=== PATIENT | female | born 1990 | race Caucasian/White ===

== ENCOUNTER 2024-08-04 06:00 | Outpatient (CLI) | payer MEDICAID, SELFPAY | END 2024-08-04 06:01 | disposition home or self-care (01) | LOC: RAD 08-25 10:37 | PROVIDERS: PCP Nurse Practitioner Family; Visit Provider Nurse Practitioner Family | DX: R51.9 Headache, unspecified (principal); R26.81 Unsteadiness on feet | CPT/HCPCS: 80053; 81003; 82306; 82607; 83735; 84443; 85025; 85651; 86140 ==

== ENCOUNTER 2024-09-12 16:00 | Outpatient (CLI) | payer MEDICAID, SELFPAY ==
--- NOTE | 2024-09-12 16:43 | MR_ITS ---
WS: [id number] MRI BRAIN WITH AND WITHOUT CONTRAST HISTORY: HEADACHES COMPARISON: None available. TECHNIQUE: Multiplanar imaging performed through the brain with MultiHance 20 ml's IV. Some of the images are degraded by motion. No acute infarcts are seen. Dunlap-white matter differentiation is well preserved. There is diffuse sca ttered areas of increased T2 signal which do not enhance. Small subcentimeter increased T2 signal in the RIGHT temporal lobe. There is a very subtle area of increased T2 signal abutting the corpus callo sum of the anterior RIGHT frontal lateral ventricle. No posterior fossa lesions. No susceptibility artifacts or prior lacunar infarcts. Ventricles and extra-axial spaces are normal. Clivus and pituitary gland are normal. Visualized posterior fossa and brainstem are also normal. Postcontrast images are negative for masses or vascular malformations. Dural venous sinuses are normal. Paranasal sinuses: Diffuse mild mucoperiosteal thickening involving the LEFT maxillary sinus. Mastoid air cells: Normal. Calvarium and scalp: Normal. MR/MR head wo/w con [id number] IMPRESSION: 1. No acute intracranial hemorrhage or infarct. 2. There are 2 very nonspecific areas of increased T2 and FLAIR signal. One of these is within the RIGHT temporal lobe cortex and the other in the LEFT front al corpus callosum. No enhancement. These could be related to small vessel dise ase but demyelinating disease cannot be completely excluded if this continues t o be of concern. 3. No prior infarct. 4. LEFT maxillary sinus disease.
[2024-09-12] MEDS: gadobenate dimeglumine 20 mL vial IV (17:37)
== END 2024-09-12 16:02 | disposition home or self-care (01) ==
PROVIDERS: PCP Nurse Practitioner Family; Visit Provider Nurse Practitioner Family
DX: R51.9 Headache, unspecified (principal); R26.81 Unsteadiness on feet; J32.0 Chronic maxillary sinusitis; R94.02 Abnormal brain scan
CPT/HCPCS: 70553; A9577

== ENCOUNTER 2024-11-08 08:57 | Outpatient (CLI) | payer MEDICAID, SELFPAY ==
--- NOTE | 2024-11-08 09:30 | MR_ITS ---
WS: [id number] MRI LUMBAR SPINE WITH CONTRAST TECHNIQUE: Sagittal T1, T2 and STIR imaging. Axial T1 and T2 imaging. Post gadolinium imaging was obt ained. CLINICAL INFORMATION: R26.81 - Unsteadiness on feet COMPARISON: None. FINDINGS: Some images degraded by motion. Mild lumbar curve. No acute compression. Disc bulging worse at L3-L5. No abnormal gadolinium enhancem ent. L1-L2: Mild facet arthropathy. Spinal canal and foramen are patent. L2-L3: Mild facet arthropathy. Spinal canal and foramen are patent. L3-L4: Mild annular bulge with mild central canal stenosis. Impingement on the LEFT greater than RIGH T subarticular recess. Mild facet arthropathy. LEFT foraminal protrusion impinges the exiting LEFT L3 nerve root with mild LEFT foraminal narrowing. L4-L5: Broad-based RIGHT paracentral disc protrusion with mild to moderate central canal stenosis. Im pingement traversing RIGHT L5 nerve root in the subarticular recess. Mild facet arthropathy. Mild LEF T greater than RIGHT foraminal narrowing. L5-S1: Disc bulging with impingement on the RIGHT subarticular recess and traversing RIGHT S1 nerve r oot. Mild facet arthropathy. Mild RIGHT foraminal narrowing. LEFT foramen is patent. Mild facet arthr opathy. Visualized pelvic bony structures: Normal. Paravertebral soft tissues: Normal. MR/MR lumbar spine wo/w con [id number] IMPRESSION: 1. RIGHT paracentral and subarticular protrusion with mild to moderate central canal stenosis L4-5. Impingement traversing RIGHT L5 nerve root. 2. Mild annular bulging L3-4 with narrowing of the LEFT greater than RIGHT sub articular recess and mild central canal stenosis. Mild LEFT foraminal narrowing with a small LEFT foraminal protrusion. 3. RIGHT paracentral protrusion L5-S1 impinges the traversing RIGHT S1 nerve root in the subarticular recess. 4. Mild LEFT greater than RIGHT L4-5 foraminal narrowing. 5. Mild RIGHT L5-S1 foraminal narrowing. 6. No abnormal gadolinium enhancement.
--- NOTE | 2024-11-08 10:15 | MR_ITS ---
WS: [id number] MR CERVICAL SPINE WO/W HISTORY: R26.81 - Unsteadiness on feet TECHNIQUE: Sagittal T1, T2 and T2 inversion recovery; axial T2, T2 gradient and fiesta. Post gadolini um imaging with fat saturation technique. FINDINGS:Straightening of the normal cervical lordosis. No high grade central canal narrowing. Mild d isc bulging C5-C6 with slight indentation on the cervical cord with mild central canal stenosis. No a bnormal gadolinium enhancement. C2-3: Spinal canal and foramen are patent. C3-4: Spinal canal and foramen are patent. C4-5: Minimal disc bulging. Mild facet arthropathy. Spinal canal and foramen are patent. C5-6: Central and LEFT paracentral disc protrusion with slight indentation on the cervical cord. Mild central canal stenosis. Foramen are patent. Mild facet arthropathy. C6-7: Minimal disc bulging. Mild LEFT and no significant RIGHT foraminal narrowing. Mild facet arthro elayne. C7-T1: Minimal disc bulging. Mild LEFT greater than RIGHT foraminal narrowing. Spinal canal is patent . T2 hyperintense RIGHT thyroid nodule measuring 18.9 mm. MR/MR cervical spine wo/w [id number] IMPRESSION: 1. Shallow central and LEFT paracentral protrusion C5-C6 with slight indentati on on the cervical cord with mild central canal stenosis. 2. Straightening of the normal cervical lordosis. Cord signal is normal. 3. No abnormal gadolinium enhancement. 4. Mild LEFT C6-7 and C7-T1 foraminal narrowing.
[2024-11-08] MEDS: gadobenate dimeglumine 20 mL vial IV (10:28)
== END 2024-11-08 08:58 | disposition home or self-care (01) ==
LOC: RAD 08:58
PROVIDERS: PCP Nurse Practitioner Family; Visit Provider Psychiatry & Neurology Neurology
DX: M50.20 Other cervical disc displacement, unspecified cervical region (principal); M54.16 Radiculopathy, lumbar region; M51.26 Other intervertebral disc displacement, lumbar region; M48.061 Spinal stenosis, lumbar region without neurogenic claudication; E04.1 Nontoxic single thyroid nodule; G35 Multiple sclerosis; R26.81 Unsteadiness on feet; R51.9 Headache, unspecified
CPT/HCPCS: 72156; 72158

== ENCOUNTER 2024-11-14 09:03 | Outpatient (CLI) | payer MEDICAID, SELFPAY ==
--- NOTE | 2024-11-14 09:15 | FL_ITS ---
WS: [email or web address] LUMBAR PUNCTURE CLINICAL INFORMATION: R26.81 - Unsteadiness on feet COMPARISON: None. TECHNIQUE: Informed consent: The procedure and its potential risk and complications were discussed with the kassie ent. Verbal and written consent was obtained. Timeout: A timeout was performed to confirm correct patient, procedure, and site. Patient was prepped and draped in the usual sterile fashion. Lidocaine 1% was used for local anesthes ia. Utilizing fluoroscopic guidance, a 3.5 inch 22-gauge spinal needle was advanced into the subarach noid space at L2-3 via LEFT oblique sublaminar approach. Free flow of clear CSF was obtained. 10 cc o f CSF was collected and sent the lab for further analysis. Initial flow of CSF was slightly blood tin ged due to small amount of blood products in the needle hub. This subsequently quickly cleared with f urther drainage. Opening pressure 18 cmH2O Closing pressure 14 cmH2O FLUOROSCOPIC TIME: 0min [id number] # of spot films: 1 FL/FL guided lumbarpunc dx* [id number] IMPRESSION: Fluoroscopically guided lumbar puncture. No immediate complications Opening pressure 18 cmH2O Closing pressure 14 cmH2O
[2024-11-14 11:15] LABS: Mononuclear WBC CSF % 100 % (50-90); Polynuclear WBC CSF % 0 % (0-10); Red Blood Cell CSF 0 10^3/uL (0-0); White Blood Cell CSF 1 /uL (0-5)
[2024-11-14 11:16] LABS: Appearance CSF CLEAR (CLEAR); Color CSF COLORLESS (COLORLESS)
[2024-11-14 11:53] LABS: Glucose CSF 69 mg/dL (40-70); Total Protein CSF 32 mg/dL (15-45)
[2024-11-17 15:41] LABS: HIV RNA (CPY/ML) NOT DETECTED (NOT DETECTED); HIV RNA LOG NOT DETECTED copies/mL (NOT DETECTED)
[2024-11-17 19:44] LABS: Toxoplasma Gondii IgG CSF <0.90; Toxoplasma Gondii IgM CSF <0.80
[2024-11-17 23:24] LABS: JC Virus DNA Ultra QN PCR NOT DETECTED Log IU/mL; JC Virus Quant CSF PCR NOT DETECTED
[2024-11-17 23:34] LABS: VDRL on CSF NON-REACTIVE
[2024-11-18 19:49] LABS: Poliovirus Type 1 Titer >1:128; Poliovirus Type 3 Titer >1:128
[2024-11-19 11:29] LABS: Angiotensin Convert Enzy CSF 2 U/L (<=15)
== END 2024-11-14 09:04 | disposition home or self-care (01) ==
LOC: RAD 09:05
PROVIDERS: PCP Nurse Practitioner Family; Visit Provider Psychiatry & Neurology Neurology
DX: R26.81 Unsteadiness on feet (principal); G35 Multiple sclerosis; G37.9 Demyelinating disease of central nervous system, unspecified; R32 Unspecified urinary incontinence; M54.50 Low back pain, unspecified; R51.9 Headache, unspecified
CPT/HCPCS: 36415; 62328; 80503; 82040; 82042; 82164; 82784; 82945; 83916; 84157; 86382; 86403; 86592; 86777; 86778; 86788; 86789; 87015; 87070; 87075; 87116; 87205; 87206; 87327; 87496; 87536; 87799; 87801; 89050

== ENCOUNTER → 2024-12-04 10:54 | Outpatient (BNVA) | payer MEDICAID, SELFPAY | PROVIDERS: PCP Nurse Practitioner Family; Visit Provider Nurse Practitioner Family | DX: K59.00 Constipation, unspecified (principal); K64.9 Unspecified hemorrhoids | CPT/HCPCS: 74018 ==

== ENCOUNTER → 2024-12-14 11:02 | Outpatient (BNVA) | payer MEDICAID, SELFPAY | PROVIDERS: PCP Nurse Practitioner Family; Visit Provider Orthopaedic Surgery | DX: M54.50 Low back pain, unspecified (principal); M48.062 Spinal stenosis, lumbar region with neurogenic claudication | CPT/HCPCS: 72110 ==

== ENCOUNTER 2024-12-23 06:00 | Outpatient (RCR) | payer MEDICAID, SELFPAY | END 2025-01-19 23:59 | disposition home or self-care (01) | LOC: TPT 06:00 | PROVIDERS: PCP Nurse Practitioner Family; Visit Provider Orthopaedic Surgery | DX: M54.50 Low back pain, unspecified (principal); G89.29 Other chronic pain | CPT/HCPCS: 97161 ==

== ENCOUNTER 2025-01-08 07:51 | Day surgery (SDC) | payer MEDICAID, SELFPAY ==
[2025-01-08] VITALS (12 sets, daily range): BP systolic 100–140; BP diastolic 53–88; PULSE 57–78; RESP 14–18; TEMP 36.2–36.7; O2SAT 97–100
[2025-01-08] MEDS: sodium chloride 0.9% 1,000 ML 30 ML IV (08:27)
--- NOTE | 2025-01-08 08:55 | W.PM.OPSUD ---
Surgery/Procedure H&P Update DATE OF PROCEDURE: January 08, 2025 DATE H&P PERFORMED: 01/03/25 H&P UPDATE INFORMATION: I have reviewed H&P completed within last 30 days, I have examined patient prior to procedure, No changes to prior documentation and H&P is in [facility] EMR on date indicated PLANNED PROCEDURE: Operation Date: 01/08/25 09:10 Proposed Procedures p Exam Under Anesthesia 35966, 42659, 25463, K64.9(Not Applicable) - Lang Robison MD s Hemorrhoidectomy(Not Applicable) - Lang Robison MD
--- NOTE | 2025-01-08 09:09 | ANES.PREANE2 ---
Pre-Anesthetic Assessment Height/Weight: Height 5 ft 7 in Weight 230 lb Temp Pulse Resp BP Pulse Ox O2 Del Method 98.0 F 78 16 140/88 98 Room Air 01/08/25 08:21 01/08/25 08:21 01/08/25 08:21 01/08/25 08:21 01/08/25 08:21 01/08/25 08:21 Preop Diagnosis: Hemorrhoids Operation Date: 01/08/25 09:10 Proposed Procedures p Exam Under Anesthesia 02727, 60702, 64646, K64.9(Not Applicable) - Lang Robison MD s Hemorrhoidectomy(Not Applicable) - Lang Robison MD Was Beta Pauline taken within 24 hours: N/A Was Clonidine taken within 24 hours: N/A Last intake: Intake Last Liquid Date 01/07/25 Last Liquid Time 22:00 Last Solid Date 01/06/25 Last Solid Time 22:00 Social Tobacco and No alcohol Exam alert, oriented x 3, clear to auscultation bilaterally and regular rate & rhythm Airway Submandibular: within normal limits Cervical ROM: within normal limits Mallampati: Class II Dentition: full Anesthetic Plan ASA status: 2 Anesthesia: General Other: No prior issues with anesthesia NPO since yesterday evening Patient denies any cardiac or pulmonary issues Patient is currently being worked up by neurology for headaches and weakness. Suspected MS but not definitive per neurology notes METs greater than 4 Plan for GETA Medications/Allergies Home Medications ?Medication ?Instructions ?Recorded ?Confirmed ?Last Taken ?Type cholecalciferol (vitamin D3) 25 25 mcg PO DAILY 11/06/24 01/04/25 Unknown History mcg (1,000 unit) capsule hydrocortisone 2.5 % topical cream 1 applic RI QID PRN pain #30 grams 12/04/24 01/04/25 Unknown Rx with perineal applicator (Anusol-HC) Allergies Allergy/AdvReac Type Severity Reaction Status Date / Time Red Dye 40 Allergy ADR-Gastrointestinal Uncoded 01/03/25 08:44 Upset Current Medications Generic Name Dose Route Start Last Admin Trade Name Freq PRN Reason Stop Dose Admin Sodium Chloride 1,000 mls @ 30 mls/hr 01/08/25 08:00 01/08/25 08:27 Sodium Chloride 0.9% IV 01/09/25 07:59 30 mls/hr .Q24H STACY Administration PFSH Anesthesia Surgical History (Updated 01/03/25 @ 08:51 by CRIS Donald) History of tubal ligation Social History Smoking and tobacco/nicotine status: current every day tobacco/nicotine user Data Anesthesia Cardiac Studies: No Data to Display
[2025-01-08 09:23] LABS: OR HCG Qualitative Urine Negative (Negative)
[2025-01-08] MEDS: ceFAZolin 2,000 mg SDV 2000 MG IVP (09:24)
[2025-01-08] MEDS: BUPivacaine 0.25% INJ 10 mL INJECTION (10:00)
[2025-01-08] MEDS: lidocaine 2% jelly 1 APPLIC/6 ML TUBE TOPICAL (10:00)
[2025-01-08] MEDS: lidocaine-epi 1% 20 mL INJ INJECTION (10:00)
--- NOTE | 2025-01-08 10:23 | PM.OP ---
Operative Report Date of procedure: January 08, 2025 Pre-op diagnosis: External hemorrhoid Post-op diagnosis: Internal hemorrhoids, external hemorrhoid and associated the skin tag Post-op findings: There was a small external hemorrhoid with an associated skin tag on the anterior aspect of the anal canal. 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 She presented to my office for evaluation. We have decided to proceed with exam under anesthesia and possible hemorrhoidectomy. Procedure: Patient was brought into the OR. General anesthesia was given. She was transferred to the bed into a prone position. The perianal region was prepped and draped in usual sterile fashion. A timeout was conducted. I started the exam under anesthesia with a digital rectal examination that was unremarkable. A Hill-Toure retractor was then inserted in the anus, there were very small internal hemorrhoids in the posterior lateral columns. In anterior aspect where the patient had a major degree of her symptoms there was a small external hemorrhoid with an associated skin tag. Since the posterior hemorrhoids were very small I do not think resection was granted. I then decided to proceed only with the resection of the anterior external hemorrhoid and associated skin tag. I started by creating marcello-shaped incision that incorporated the skin tag and hemorrhoid all the way from the perineum to the anal mucosa. The incision was carefully deepened with careful blunt dissection I the skin and the hemorrhoidal package from the underlying sphincter. The specimen was completely transected and sent to pathology. Hemostasis was verified. I then proceeded to close the defect in the mucosa on the skin using a #3-0 chromic. I took careful consideration and proper alignment of the mucocutaneous junction. A final examination showed no other evidence of pathology in the anal canal. The wound was irrigated. I then proceeded to insert Gelfoam soaked with lidocaine to allow with pain control in the postoperative period. At the end of the procedure all counts were correct, the patient tolerated well the procedure and was transferred to the PACU in stable condition.
[2025-01-08] MEDS: meperidine 50 mg/mL INJ 12.5 MG IVP (10:34)
== END 2025-01-08 12:50 | disposition home or self-care (01) ==
PROVIDERS: Student in an Organized Health Care Education/Training Program; PCP Nurse Practitioner Family; Visit Provider Surgery
PROC: (CPT 46220; principal; 2025-01-08 09:00)
PROC: (CPT 46220; 2025-01-08 09:00)
DX: K64.8 Other hemorrhoids (principal); K64.4 Residual hemorrhoidal skin tags; F17.200 Nicotine dependence, unspecified, uncomplicated
CPT/HCPCS: 46220; 46999; 81025; 88304; A4216; J0131; J0690; J1100; J1171; J1885; J2175; J2405; J2704; J3490; J7030

== ENCOUNTER 2025-02-26 10:20 | Outpatient (CLI) | payer MEDICAID, SELFPAY ==
--- NOTE | 2025-02-26 10:29 | XR_ITS ---
WS: [id number] Exam: XR knee LT 3V* [id number] Date/Time of Exam: 02/26/2025 10:36 AM Reason For Exam: M25.562 - Pain in left knee No acute fracture. The joints are preserved. No joint effusion. Normal soft tissues. XR/XR knee LT 3V* [id number] IMPRESSION: 1. Negative LEFT knee.
== END 2025-02-26 10:21 | disposition home or self-care (01) ==
LOC: RAD 10:24
PROVIDERS: PCP Nurse Practitioner Family; Visit Provider Nurse Practitioner Family
DX: M25.562 Pain in left knee (principal)
CPT/HCPCS: 73562

== ENCOUNTER 2025-03-07 13:00 | Outpatient (CLI) | payer MEDICAID, SELFPAY ==
--- NOTE | 2025-03-07 13:00 | MR_ITS ---
WS: [email or web address] MRI LEFT KNEE NONCONTRAST TECHNIQUE: Axial PD, coronal PD fat sat, coronal PD, sagittal PD, and sagittal PD fat-sat images obtained. CLINICAL INFORMATION: M25.562 - Pain in left knee COMPARISON: None. FINDINGS: Distal quadriceps and patellar tendons are intact. Hypertrophic patella. Normal ACL and PCL. Slight lateral subluxation of the patella may be positional. Recommend correlation for patellar instability. Normal medial and lateral patellar retinaculum. Mild chondromalacia patella. Tiny suprapatellar effusion. Medial and lateral collateral ligaments are intact. Normal popliteal fossa. Fibular head is normal. Normal medial and lateral meniscus. No acute appearing meniscal tears. Fibular head is normal. MR/MR knee LT wo con* [id number] IMPRESSION: 1. Normal ACL and PCL. 2. No acute appearing meniscal tears. 3. Medial and lateral collateral ligaments appear intact. 4. Slight lateral subluxation of the patella some of which may be positional. Recommend correlation for patellar instability. 5. No other acute findings. Outbridge grading: grade II: blister-like swelling/fraying of articular cartila ge extending to surface
== END 2025-03-07 13:01 | disposition home or self-care (01) ==
PROVIDERS: PCP Nurse Practitioner Family; Visit Provider Nurse Practitioner Family
DX: M22.42 Chondromalacia patellae, left knee (principal); R93.6 Abnormal findings on diagnostic imaging of limbs; M89.38 Hypertrophy of bone, other site
CPT/HCPCS: 73721

== ENCOUNTER → 2025-03-19 08:39 | Outpatient (BNVA) | payer MEDICAID, SELFPAY | PROVIDERS: PCP Nurse Practitioner Family; Visit Provider Specialist | DX: M25.562 Pain in left knee (principal); M25.362 Other instability, left knee | CPT/HCPCS: 73560; 73565 ==